=== PATIENT | female | born 1950 | race Caucasian/White ===

== ENCOUNTER 2019-04-25 21:03 | Emergency (ER) | payer MEDICARE ==
[~2019-04-25] VITALS: Ht 157.5 cm; Wt 80.3 kg
[2019-04-25 22:06] LABS: BILIRUBIN,URINE NEGATIVE (NEG); CLARITY,URINE CLOUDY; COLOR,URINE RED; NITRITE,URINE NEGATIVE (NEG); PH,URINE 5.5; PROTEIN,URINE 100 mg/dL (NEG-TRACE); UROBILINOGEN,URINE 0.2 mg/dL (0.2 mg/dL)
[2019-04-25 22:12] LABS: RBC,URINE TNTC /HPF (0-2)
[2019-04-25 22:13] LABS: BACTERIA,URINE FEW /HPF (0-FEW); WBC,URINE >40 /HPF (0-4)
[2019-04-25 23:05] VITALS: BP 144/86
[2019-04-25] MEDS ORDERED: CEPH-264 PO (23:17)
--- NOTE | 2019-04-25 23:17 | PHYS DOC ---
Past Medical History Attending Signature I have participated in the care of this patient and I have reviewed and agree with all pertinent clinical information above including history, exam, and recommendations. (LEOPOLDO MARIN MD) Adult General Chief Complaint Chief Complaint: PAIN ON URINATION HPI HPI Patient is a 68 year old female who presents with female urinary burning and hematuria 2 hours. (MAKAYLA CABRERA APRN) Review of Systems Review of Systems : dysuria or hematuria [] All other systems were reviewed and found to be within normal limits, except as documented in this note. (MAKAYLA CABRERA APRN) Allergies Allergies Allergies Coded Allergies Type Severity Reaction Last Updated Verified No Known Drug Allergies 04/25/19 No (LEOPOLDO MARIN MD) Physical Exam Physical Exam Constitutional: Well developed, well nourished, no acute distress, non-toxic appearance. [] HENT: Normocephalic, atraumatic, bilateral external ears normal, oropharynx moist, no oral exudates, nose normal. [] Eyes: PERRLA, EOMI, conjunctiva normal, no discharge. [] Neck: Normal range of motion, no tenderness, supple, no stridor. [] Cardiovascular:Heart rate regular rhythm, no murmur [] Lungs & Thorax: Bilateral breath sounds clear to auscultation [] Abdomen: Bowel sounds normal, soft, no tenderness, no masses, no pulsatile mass es. [] Skin: Warm, dry, no erythema, no rash. [] Back: No tenderness, no CVA tenderness. [] Extremities: No tenderness, no cyanosis, no clubbing, ROM intact, no edema. [] Neurologic: Alert and oriented X 3, normal motor function, normal sensory function, no focal deficits noted. [] Psychologic: Affect normal, judgement normal, mood normal. Normal Physical Exam [] (MAKAYLA CABRERA APRN) Current Patient Data Vital Signs Vital Signs Date Time Temp Pulse Resp B/P (MAP) Pulse Ox O2 Delivery O2 Flow Rate FiO2 04/25/19 23:05 98.3 90 16 144/86 (105) 94 Room Air 98.3 (LEOPOLDO MARIN MD) Lab Values Laboratory Tests Test 04/25/19 21:40 Urine Collection Type Unknown Urine Color Red Urine Clarity Cloudy Urine pH 5.5 Urine Specific [place] 1.025 Urine Protein 100 mg/dL (NEG-TRACE) Urine Glucose (UA) Negative mg/dL (NEG) Urine Ketones (Stick) Negative mg/dL (NEG) Urine Blood Large (NEG) Urine Nitrite Negative (NEG) Urine Bilirubin Negative (NEG) Urine Urobilinogen Dipstick 0.2 mg/dL (0.2 mg/dL) Urine Leukocyte Esterase Moderate (NEG) Urine RBC Tntc /HPF (0-2) Urine WBC >40 /HPF (0-4) Urine Bacteria Few /HPF (0-FEW) (LEOPOLDO MARIN MD) EKG EKG [] (MAKAYLA CABRERA APRN) Radiology/Procedures Radiology/Procedures [] (MAKAYLA CABRERA APRN) Course & Med Decision Making Course & Med Decision Making Abdomen soft and nontender. Patient denies any pain at this time. Patient denies fever, nausea, vomiting, back pain, abdominal pain, headache, dizziness, numbness or tingling, chest pain, shortness of air. Skin pink warm and dry. Alert and oriented. Ambulatory with a steady gait. Clear to auscultation all lobes. No CVA tenderness. No extremity edema. (MAKAYLA CABRERA APRN) Dragon Disclaimer Dragon Disclaimer This electronic medical record was generated, in whole or in part, using a voice recognition dictation system. (MAKAYLA CABRERA APRN) Departure Departure Impression: Primary Impression: UTI (urinary tract infection) Disposition: HOME, SELF-CARE Condition: STABLE Referrals: NO PCP (PCP) Patient Instructions: Urinary Tract Infection Additional Instructions: Follow up with primary care provider. Drink plenty of fluids. Scripts Cephalexin (KEFLEX) 500 Mg Capsule 1 CAP PO BID for 7 Days, #14 CAP 0 Refills Prov: MAKAYLA CABRERA APRN 04/25/19 Problem Qualifiers Primary Impression: UTI (urinary tract infection) Urinary tract infection type: site unspecified Hematuria presence: with hematuria Qualified Codes: N39.0 - Urinary tract infection, site not specified; R31.9 - Hematuria, unspecified MAKAYLA CABRERA APRN Apr 25, 2019 23:17 LEOPOLDO MARIN MD Apr 26, 2019 07:33
== END 2019-04-25 23:43 | disposition home or self-care (01) ==
LOC: ER 21:03
DX: N39.0 Urinary tract infection, site not specified (principal); R31.9 Hematuria, unspecified
CPT/HCPCS: 81001; 87086; 87186; 99284